=== PATIENT | female | born 1960 | race Caucasian/White ===

== ENCOUNTER 2023-07-14 07:50 | Day surgery (SDC) | payer BC, OTHER ==
[~2023-07-14 07:50] MED LIST: Sodium Chloride 0.9% 10 ML Syringe FLUSH PRN
[2023-07-14] MEDS ORDERED: Propofol 200 MG/20 ML SDV IV ONE (07:51)
[2023-07-14] MEDS ORDERED: Lidocaine 2% 5 ML SDV IV ONE (07:51)
[2023-07-14] MEDS ORDERED: Glycopyrrolate 0.2 MG/ML 5 ML MDV IV ONE (07:51)
[2023-07-14] MEDS: Lactated Ringers 1,000 ML IV SCH (09:04)
[2023-07-14] MEDS: Simethicone Drops 40 MG/0.6 ML 30 ML Bottle ONE (09:32)
[2023-07-14] MEDS: Iopamidol 755 Mg/ML 100 ML Bottle IV SCH (12:44)
[2023-07-14 12:59] VITALS: BP 141/67; PULSE 79
== END 2023-07-14 12:40 | disposition home or self-care (01) ==
LOC: FB.SDS 07:50
PROVIDERS: ATTEND Surgery
DX: D12.2 Benign neoplasm of ascending colon (principal); K57.30 Diverticulosis of large intestine without perforation or abscess without bleeding; J32.9 Chronic sinusitis, unspecified; F41.9 Anxiety disorder, unspecified; F17.210 Nicotine dependence, cigarettes, uncomplicated; Z79.899 Other long term (current) drug therapy; Z88.8 Allergy status to other drugs, medicaments and biological substances; Z88.2 Allergy status to sulfonamides; Z88.5 Allergy status to narcotic agent
CPT/HCPCS: 00811; 74177; 88305; A9270-GY; J2704; J3490; J7120; Q9967